=== PATIENT | female | born 1945 | race Caucasian/White ===

== ENCOUNTER 2018-02-19 12:19 | Inpatient (IN) ==
[2018-02-19] MEDS ORDERED: 0.9 % Sodium Chloride 1,000 ML IVC ONE (12:38)
--- NOTE | 2018-02-19 12:41 | Emergency Department Note ---
Disposition Clinical Impression: Paroxysmal atrial fibrillation with rapid ventricular response Disposition: Admitted As Inpatient Condition: Fair Instructions: Atrial Fibrillation (ED) Forms: ED Satisfaction Letter Weakness HPI - General Chief complaint: ED Shortness of Breath/Dyspnea Stated complaint: SOB, dizzy, nausea Time Seen by Provider: 02/19/18 12:32 Source: patient, family Limitations: altered mental status Nursing Notes Reviewed: Yes Vital Signs Reviewed: Yes - History of Present Illness HPI Narrative: 72-year-old female percents for evaluation of generalized weakness. Patient has a history of dementia and therefore her history is not totally reliable and history is obtained mostly from the daughter. Patient states she has been feeling this way for the last 2-3 days. Patient states she has a known history of COPD and frequent when she starts to feel this way she is developing pneumonia. She states that the severity of her COPD and requires oxygen on an as-needed basis. She has nebulizers prescribed does not use them. Patient states no fever or chills. She said no nausea vomiting. She states she has been having some blood from her stools. She denies any abdominal pain. She states no history of hemorrhoids. She has known history of atrial fibrillation. This is not chronic but has been treated in the past with Cardizem. She denies any history of congestive heart failure. She denies any current chest pain. Pain Scale: 0 - Related Data Home Medications Medication Instructions Recorded Confirmed LevETIRAcetam [Keppra] 500 mg PO DAILY 02/01/15 02/19/18 levETIRAcetam [Keppra] 750 mg PO HS 02/01/15 02/19/18 Donepezil [Aricept] 10 mg PO HS 01/31/16 02/19/18 Loratadine [Claritin] 10 mg PO DAILY 01/31/16 02/19/18 Mirtazapine [Remeron] 30 mg PO HS 01/31/16 02/19/18 Sertraline [Zoloft] 100 mg PO DAILY 01/31/16 02/19/18 carBAMazepine [Tegretol] 100 mg PO BID 01/31/16 02/19/18 Gabapentin [Neurontin] 400 mg PO BID 07/23/17 02/19/18 carBAMazepine [Tegretol] 200 mg PO HS 07/23/17 02/19/18 Allergies Allergy/AdvReac Type Severity Reaction Status Date / Time azithromycin [From Zithromax] Allergy Rash Verified 07/23/17 15:47 cefuroxime [From Ceftin] Allergy Rash Verified 07/23/17 15:47 cephalexin [From Keflex] Allergy See Verified 07/23/17 15:47 Comments Erythromycin Base Allergy Rash Verified 07/23/17 15:47 levofloxacin [From Levaquin] Allergy Rash Verified 07/23/17 15:47 Penicillins Allergy Rash Verified 07/23/17 15:47 promethazine [From Phenergan] Allergy Hallucinati Verified 07/23/17 15:47 ng propoxyphene [From Darvon] Allergy See Verified 02/19/18 12:29 Comments sulfamethoxazole Allergy Rash Verified 07/23/17 15:47 [From Bactrim] trimethoprim [From Bactrim] Allergy Rash Verified 07/23/17 15:47 aspirin AdvReac Abdominal Verified 07/23/17 15:47 Pain Review of Systems: Constitutional: [Negative for fever and chills.] HENT: [Negative for congestion.] Eyes: [Negative for discharge.] Respiratory: See history of present illness Cardiovascular: [Negative for chest pain.] Gastrointestinal: [Negative for nausea, vomiting, abdominal pain and diarrhea.] Endocrine: [Negative for excessive thirst,urination] Genitourinary: [Negative for dysuria and frequency.] Musculoskeletal: [Negative for myalgias and arthralgias.] Skin: [Negative for rash.] Neurological: [Negative for dizziness, localized weakness and headaches.] Psychiatric/Behavioral: [Negative for nervous/anxious.] All other systems reviewed and are negative. Past Medical History - Past Medical History Attestation: Yes The following information was validated with the patient. Source: patient Medical history: Reports: atrial fibrillation, CHF, COPD, dementia, hypertension , seizures Surgical history: Reports: cholecystectomy, hysterectomy Psychiatric history: Reports: anxiety, depression FREIGHT BROKER history: Reports: no FREIGHT BROKER history - Social History Smoking Status: Former smoker Smokeless Tobacco Status: No Alcohol use: Reports: none Drug use: Reports: none Physical Exam Constitutional: Patient is [alert], elderly and very thin and cooperative. . The patient appears [asymptomatic], [nontoxic, and does not appear ill]. HENT: Head: Normocephalic and atraumatic. Right Ear: External ear normal. Left Ear: External ear normal. Nose: Nose normal. Mouth/Throat: Oropharynx is clear and mucous membranes show [good hydration.] Eyes: Conjunctivae and EOM are normal. Pupils are equal, round, and reactive to light. Right eye exhibits [no] discharge. Left eye exhibits [no] discharge. Neck: Trachea is midline, normal range of motion and [phonation normal]. Neck supple. Cardiovascular: [Regular rhythm], S1 normal, S2 normal, normal heart sounds and intact distal pulses. Exam reveals no gallop and no friction rub. No murmur heard. [Capillary refill is brisk.] [Peripheral pulses are 2+] Pulmonary/Chest: Effort [normal] No stridor. [No] tachypnea. [No] respiratory distress. There are [no] decreased breath sounds. [There no wheezes, no rhonchi , or rales.] Abdominal: Soft. [Bowel sounds are normal]. There exhibits [no] distension and [no] mass. There is no hepatosplenomegaly. There is minimal right lower quadrant tenderness, [no] CVA tenderness. There is [no rigidity, no rebound, no guarding]. Musculoskeletal: Normal range of motion of uninvolved extremities. There exhibits [no edema]. [ ] Neurological: Patient is alert. Patient displays no atrophy and no tremor. No cranial nerve deficit and exhibits normal muscle tone. Coordination normal grossly. Skin: Skin is warm and dry. No erythema. No rash noted. Psychiatric: Patient has a [normal mood and affect.] Course Course Narrative: Patient was started on Cardizem drip with decrease in heart rate 200+ or -5. Patient was discussed with Dr. Anu Willis's nurse practitioner who will accept the patient for admission Vital Signs Temperature 98.4 F 02/19/18 12:34 Pulse Rate 118 02/19/18 12:34 Respiratory Rate 18 02/19/18 12:34 Blood Pressure 126/84 02/19/18 12:34 O2 Sat by Pulse Oximetry 93 02/19/18 12:34 Temperature 98.4 F 02/19/18 12:34 Pulse Rate 84 02/19/18 13:30 Respiratory Rate 18 02/19/18 12:34 Blood Pressure 103/72 02/19/18 13:30 O2 Sat by Pulse Oximetry 95 02/19/18 13:30 Oxygen Delivery Oxygen Delivery Room Air Weakness - MDM Narrative Medical decision making narrative: Differential diagnosis would include Sepsis ( THE RESULT OF PNEUMONIA, INFLUENZA, MENINGITIS,SINUSITIS, ENDOCARDITIS,PYELONEPHRITIS, COLITIS, DIVERTICULITIS,OR WOUND INFECTION), ALCOHOL INTOXICATION, ELEVATED AMNONIA, DRUG TOXICITIES, ELECTROLYTE ABNORMALITIES, HYPO OR HYPERGLYCEMIA, OR UREMIA, PULMONARY EMBOLISM, ACUTE CORONARY SYNDROME, THORACIC AORTIC DISSECTION, PNEUMOTHORAX, PNEUMONIA, PLEURAL EFFUSION, , ESOPHAGEAL RUPTURE, PERICARDIAL TAMPONADE, PULMONARY EDEMA. ANEMIA, GASTROINTESTINAL BLEEDING, RENAL FAILURE, LIVER FAILURE, - Lab Data Lab results reviewed: Yes I reviewed the patient's lab results. Result diagrams: 02/19/18 12:45 02/19/18 12:45 Lab Results 02/19/18 02/19/18 02/19/18 Range/Units 12:45 12:45 12:45 WBC 7.2 (4.3-11.1) K/mcL RBC 4.16 (3.82-4.97) M/mcL Hgb 13.3 (11.5-15.4) g/dL Hct 39.9 (35.3-44.9) % MCV 95.9 (83.0-100.0) fL MCH 32.0 (28.0-33.3) pg MCHC 33.3 (31.6-35.5) g/dL RDW 12.6 (11.5-14.5) % Plt Count 162 (140-400) K/mcL MPV 9.9 (9.4-12.4) fL Immature Gran % 0.1 (0-4) % Seg Neutrophils % 68.9 % Lymphocytes % 21.4 % Monocytes % 7.1 % Eosinophils % 2.2 % Basophils % 0.3 % Neutrophils # 5.0 (1.6-8.9) K/mcL Lymphocytes # 1.5 (0.6-4.6) K/mcL Monocytes # 0.5 (0.0-1.3) K/mcL Eosinophils # 0.2 (0.0-0.6) K/mcL Basophils # 0.0 (0.0-0.2) K/mcL PT (9.4-12.1) Seconds INR APTT (26.0-36.0) Seconds Sodium 141 (136-145) mEq/L Potassium 4.0 (3.5-5.1) mEq/L Chloride 103 (98-107) mEq/L Carbon Dioxide 29 (23-29) mEq/L BUN 22 (8-23) mg/dL Creatinine 0.70 (0.60-1.20) mg/dL Est GFR ( Amer) > 60 (> 60) Est GFR (Non-Af Amer) > 60 (> 60) BUN/Creatinine Ratio 31 H (6-26) Glucose 144 H (70-105) mg/dL Calculated Osmolality 298 (280-300) Lactic Acid 0.8 (0.5-2.2) mmol/L Calcium 9.5 (8.6-10.3) mg/dL Total Bilirubin 0.4 (0.3-1.0) mg/dL Direct Bilirubin 0.1 (0.0-0.2) mg/dL Indirect Bilirubin 0.3 (0.0-1.2) mg/dL AST 17 (13-39) Units/L ALT 9 (7-52) Units/L Alkaline Phosphatase 135 H (34-104) Units/L Troponin I < 0.03 (< 0.04) ng/mL B-Natriuretic Peptide (Less than 100) pg/mL Serum Total Protein 7.1 (6.4-8.9) g/dL Albumin 3.9 (3.5-5.7) g/dL Globulin 3.2 (2.4-3.5) g/dL Albumin/Globulin Ratio 1.2 (1.1-2.2) TSH (0.340-5.600) mcIU/mL 02/19/18 02/19/18 02/19/18 Range/Units 12:45 12:45 12:45 WBC (4.3-11.1) K/mcL RBC (3.82-4.97) M/mcL Hgb (11.5-15.4) g/dL Hct (35.3-44.9) % MCV (83.0-100.0) fL MCH (28.0-33.3) pg MCHC (31.6-35.5) g/dL RDW (11.5-14.5) % Plt Count (140-400) K/mcL MPV (9.4-12.4) fL Immature Gran % (0-4) % Seg Neutrophils % % Lymphocytes % % Monocytes % % Eosinophils % % Basophils % % Neutrophils # (1.6-8.9) K/mcL Lymphocytes # (0.6-4.6) K/mcL Monocytes # (0.0-1.3) K/mcL Eosinophils # (0.0-0.6) K/mcL Basophils # (0.0-0.2) K/mcL PT 13.1 H (9.4-12.1) Seconds INR 1.2 APTT 32.2 (26.0-36.0) Seconds Sodium (136-145) mEq/L Potassium (3.5-5.1) mEq/L Chloride (98-107) mEq/L Carbon Dioxide (23-29) mEq/L BUN (8-23) mg/dL Creatinine (0.60-1.20) mg/dL Est GFR ( Amer) (> 60) Est GFR (Non-Af Amer) (> 60) BUN/Creatinine Ratio (6-26) Glucose (70-105) mg/dL Calculated Osmolality (280-300) Lactic Acid (0.5-2.2) mmol/L Calcium (8.6-10.3) mg/dL Total Bilirubin (0.3-1.0) mg/dL Direct Bilirubin (0.0-0.2) mg/dL Indirect Bilirubin (0.0-1.2) mg/dL AST (13-39) Units/L ALT (7-52) Units/L Alkaline Phosphatase (34-104) Units/L Troponin I (< 0.04) ng/mL B-Natriuretic Peptide 248 H (Less than 100) pg/mL Serum Total Protein (6.4-8.9) g/dL Albumin (3.5-5.7) g/dL Globulin (2.4-3.5) g/dL Albumin/Globulin Ratio (1.1-2.2) TSH 4.505 (0.340-5.600) mcIU/mL - Radiology Data Radiology results reviewed: Yes I reviewed the patient's radiology results. XR/XR chest 2V IMPRESSION: Stable appearance of the chest without acute cardiopulmonary process identified. - EKG Data EKG attestation: Yes I reviewed and interpreted this EKG. Rate: tachycardia Rhythm: A.Fib (With rapid ventricular response) [place]/QRS: normal Interpretation: nonspecific ST-T wave changes
[2018-02-19 13:00] LABS: Basophils % 0.3 %; Eosinophils # 0.2 K/mcL (0.0-0.6); Eosinophils % 2.2 %; Hematocrit 39.9 % (35.3-44.9); Hemoglobin 13.3 g/dL (11.5-15.4); Immature Granulocytes % 0.1 % (0-4); Lymphocytes # 1.5 K/mcL (0.6-4.6); Lymphocytes % 21.4 %; Mean Corpuscular HGB Conc 33.3 g/dL (31.6-35.5); Mean Corpuscular Volume 95.9 fL (83.0-100.0); Mean Platelet Volume 9.9 fL (9.4-12.4); Monocytes # 0.5 K/mcL (0.0-1.3); Monocytes % 7.1 %; Platelet Count 162 K/mcL (140-400); Red Blood Count 4.16 M/mcL (3.82-4.97); Red Cell Distribution Width 12.6 % (11.5-14.5); Segmented Neutrophils % 68.9 %
[2018-02-19 13:05] LABS: INR 1.2; Prothrombin Time 13.1 Seconds (9.4-12.1)
[2018-02-19 13:07] LABS: Activated Partial Thrombo Time 32.2 Seconds (26.0-36.0)
[2018-02-19 13:15] LABS: Alanine Aminotransferase 9 Units/L (7-52); Albumin 3.9 g/dL (3.5-5.7); Albumin/Globulin Ratio 1.2 (1.1-2.2); Alkaline Phosphatase 135 Units/L (34-104); Aspartate Amino Transferase 17 Units/L (13-39); BUN/Creatinine Ratio 31 (6-26); Bilirubin,Direct 0.1 mg/dL (0.0-0.2); Bilirubin,Indirect 0.3 mg/dL (0.0-1.2); Bilirubin,Total 0.4 mg/dL (0.3-1.0); Blood Urea Nitrogen 22 mg/dL (8-23); Calcium 9.5 mg/dL (8.6-10.3); Carbon Dioxide 29 mEq/L (23-29); Chloride 103 mEq/L (98-107); Globulin 3.2 g/dL (2.4-3.5); Glucose 144 mg/dL (70-105); Osmolality,Calculated 298 (280-300); Sodium 141 mEq/L (136-145); Total Protein 7.1 g/dL (6.4-8.9); Troponin I < 0.03 ng/mL (< 0.04); eGFR For Non-African Americans > 60 (> 60)
[2018-02-19 13:16] LABS: Bilirubin,Urine Negative (Negative); Blood,Urine Trace-lysed (Negative); Clarity,Urine Clear (Clear); Color,Urine Yellow (Yellow); Glucose,Urine (UA) Normal (Normal); Ketones,Urine Negative (Negative); Leukocyte Esterase,Urine Moderate (Negative); Nitrite,Urine Negative (Negative); Protein,Urine Negative (Neg-Trace); Specific Gravity,Urine 1.015 (1.010-1.025); Urobilinogen,Urine Normal (Normal)
[2018-02-19] MEDS ORDERED: Naloxone 0.4 MG/ML INJ IVP PRN (13:50)
[2018-02-19 14:43] LABS: Bacteria,Urine Few per hpf (None-Few); Squamous Epithelial Cell,Urine Few per lpf (None-Few)
[2018-02-19] MEDS: carBAMazepine 200 MG TABLET PO SCH ×2 (17:27→22:44)
[2018-02-19] MEDS ORDERED: Ondansetron ODT 4 MG TAB.RAPDIS SL PRN (20:56)
[2018-02-19] MEDS: Gabapentin 400 MG CAPSULE PO SCH (22:43)
[2018-02-19] MEDS: Mirtazapine 15 MG TABLET PO SCH (22:43)
[2018-02-19] MEDS: levETIRAcetam 250 MG TABLET PO SCH (22:43)
[2018-02-19] MEDS: *HR* Enoxaparin 60 MG/0.6 ML SYRINGE SQ SCH (22:44)
[2018-02-20] MEDS: *HR* Enoxaparin 60 MG/0.6 ML SYRINGE SQ SCH ×2 (05:43→17:12)
[2018-02-20 06:16] LABS: Hematocrit 38.5 % (35.3-44.9); Hemoglobin 12.6 g/dL (11.5-15.4); Mean Corpuscular HGB Conc 32.7 g/dL (31.6-35.5); Mean Corpuscular Hemoglobin 31.8 pg (28.0-33.3); Mean Corpuscular Volume 97.2 fL (83.0-100.0); Platelet Count 137 K/mcL (140-400); Red Blood Count 3.96 M/mcL (3.82-4.97); Red Cell Distribution Width 12.6 % (11.5-14.5)
[2018-02-20 06:30] LABS: BUN/Creatinine Ratio 28 (6-26); Blood Urea Nitrogen 18 mg/dL (8-23); Calcium 8.7 mg/dL (8.6-10.3); Carbon Dioxide 28 mEq/L (23-29); Chloride 105 mEq/L (98-107); Glucose 120 mg/dL (70-105); Osmolality,Calculated 291 (280-300); Sodium 139 mEq/L (136-145); eGFR For Non-African Americans > 60 (> 60)
[2018-02-20] MEDS: carBAMazepine 200 MG TABLET PO SCH ×3 (07:58→21:14)
[2018-02-20] MEDS: Gabapentin 400 MG CAPSULE PO SCH ×2 (07:58→21:13)
[2018-02-20] MEDS: Loratadine 10 MG TABLET PO SCH (07:58)
[2018-02-20] MEDS: levETIRAcetam 250 MG TABLET PO SCH ×2 (07:59→21:14)
--- NOTE | 2018-02-20 09:19 | Internal Med History&Physical ---
Date of Encounter: 02/20/18 Time of Encounter: 09:17 Assessment and Plan (1) Dementia Current visit: Yes Status: Acute continue supportive care. Qualifiers: Dementia type: unspecified type Dementia behavioral disturbance: without behavioral disturbance Qualified Code(s): F03.90 - Unspecified dementia without behavioral disturbance (2) COPD (chronic obstructive pulmonary disease) Current visit: Yes Status: Acute Stable. Continue current medication. Qualifiers: COPD type: unspecified COPD Qualified Code(s): J44.9 - Chronic obstructive pulmonary disease, unspecified (3) Paroxysmal atrial fibrillation with rapid ventricular response Current visit: Yes Status: Acute Continue Cardizem drip. Will try to titrate off. Metoprolol 25 mg started b.i.d. Consult cardiology. On Lovenox for DVT prophylaxis. Will consider switching to xarelto. rate 90-115 (4) Blood in stool Current visit: Yes Status: Acute hgb 12.6. pt reports sm amt of blood with BM. unaware of any hx of hemorrhoids. stool for occult blood. monitor. Internal Medicine - H&P: HPI Admitted From: Emergency Dept Plans for Post Hospital Care: Home History of present illness: Ms. Spencer is a 72 year old female admitted to unit for observation from the emergency room. Patient presented to the emergency room with family with a 2 to 3 day history of generalized weakness. Past medical history includes a fib, COPD which requires oxygen as needed. And dementia. Patient is a poor historian due to dementia. Denies report having a small amount of blood with the last couple bowel movements. Has been on Cardizem drip status arriving to the ER yesterday. Continues to remain in atrial fibrillation with rates 90 - 115. Denies shortness of breath, chest pain, fever, chills, nausea vomiting or diarrhea. Does complaining of fatigue. Past Med Surg Social Fam HX - Past Medical History Medical history: atrial fibrillation, CHF, COPD, dementia, hypertension, seizures Additional medical history: hysto gallblader, tonsilectomy Psychiatric history: anxiety, depression - Past Surgical History Surgical History: cholecystectomy, hysterectomy - Social History Smoking Status: Former smoker Smokeless Tobacco Status: No Alcohol use: none Drug use: none Internal Medicine - H&P: Meds LevETIRAcetam [Keppra] 500 mg PO DAILY 02/01/15 [History] levETIRAcetam [Keppra] 750 mg PO HS 02/01/15 [History] Donepezil [Aricept] 10 mg PO HS 01/31/16 [History] Loratadine [Claritin] 10 mg PO DAILY 01/31/16 [History] Mirtazapine [Remeron] 30 mg PO HS 01/31/16 [History] Sertraline [Zoloft] 100 mg PO DAILY 01/31/16 [History] carBAMazepine [Tegretol] 100 mg PO BID 01/31/16 [History] Gabapentin [Neurontin] 400 mg PO BID 07/23/17 [History] carBAMazepine [Tegretol] 200 mg PO HS 07/23/17 [History] 3 Allergy/AdvReac Type Severity Reaction Status Date / Time azithromycin [From Zithromax] Allergy Rash Verified 07/23/17 15:47 cefuroxime [From Ceftin] Allergy Rash Verified 07/23/17 15:47 cephalexin [From Keflex] Allergy See Verified 07/23/17 15:47 Comments Erythromycin Base Allergy Rash Verified 07/23/17 15:47 levofloxacin [From Levaquin] Allergy Rash Verified 07/23/17 15:47 Penicillins Allergy Rash Verified 07/23/17 15:47 promethazine [From Phenergan] Allergy Hallucinati Verified 07/23/17 15:47 ng propoxyphene [From Darvon] Allergy See Verified 02/19/18 12:29 Comments sulfamethoxazole Allergy Rash Verified 07/23/17 15:47 [From Bactrim] trimethoprim [From Bactrim] Allergy Rash Verified 07/23/17 15:47 aspirin AdvReac Abdominal Verified 07/23/17 15:47 Pain ROS unobtainable: due to endotracheal tube, due to mental status All Systems PM: A 10-system review of systems was performed and is negative for pertinent findings except as documented above in the HPI. Review of systems: Poor historian - Constitutional Vitals: Temp Pulse Resp BP Pulse Ox 97.3 F L 74 18 103/57 93 02/20/18 07:48 02/20/18 07:48 02/20/18 07:48 02/20/18 07:48 02/20/18 07:48 General appearance: Present: cooperative, A&O X 2, pleasant, no acute distress, answers questions appropriately Exam: Thin - Head Head exam: Present: atraumatic, normocephalic - Eye Eye exam: Present: PERRL, conjuntiva pink, sclera anicteric Pupils: Present: PERRL - Neck Neck exam general surgery: Present: supple, trachea midline. Absent: lymphadenopathy - Respiratory Respiratory exam: Present: CTAB. Absent: accessory muscle use, rales, rhonchi, wheezes - Cardiovascular Cardiovascular exam: Present: irregular rhythm, +S1, +S2. Absent: diastolic murmur, gallop, rubs, systolic murmur - GI/Abdominal GI/Abdominal exam: Present: normal bowel sounds, soft, no peritoneal signs. Absent: distended, tenderness - Extremities Exam Extremities exam: Present: warm, radial pulses palpable and symmetrical. Absent : calf tenderness, cyanotic, pedal edema - Neurological Exam Neurological exam: Present: CN II-XII intact, oriented X3, no focal deficits. Absent: pronater drift, facial droop, speech deficit - Skin Skin exam: Present: dry, intact Internal Med - H&P Results - Labs CBC & Chem 7: 02/20/18 05:45 02/20/18 05:45 Labs: Short CBC 02/20/18 Range/Units 05:45 WBC 6.9 (4.3-11.1) K/mcL Hgb 12.6 (11.5-15.4) g/dL Hct 38.5 (35.3-44.9) % Plt Count 137 L (140-400) K/mcL BMP 02/20/18 05:45 Sodium 139 Potassium 4.0 Chloride 105 Carbon Dioxide 28 BUN 18 Creatinine 0.64 Glucose 120 H Calcium 8.7
--- NOTE | 2018-02-20 11:17 | Electrocardiograph Report ---
[address] [address] Test Date: 2018-02-19 Pat Name: Pat Spencer Department: 2000 Room: 117 Gender: F Bricklayer'S Assistant: : 1945 Requested By: Kenny Morton Order Number: [id number] Reading MD: Oralia Suarez Measurements Intervals [place] Rate: 120 P: [place]: 0 QRS: 86 QRSD: 80 T: 53 QT: 305 QTc: 376 Interpretive Statements ATRIAL FLUTTER/TACHYCARDIA WITH RAPID VENTRICULAR RESPONSE POSSIBLE RIGHT VENTRICULAR CONDUCTION DELAY MINIMAL ST DEPRESSION ABNORMAL RHYTHM ECG Electronically Signed On 02-20-2018 11:15:46 EDT by Oralia Suarez
[2018-02-20] MEDS: Mirtazapine 15 MG TABLET PO SCH (21:13)
[2018-02-21] MEDS: *HR* Enoxaparin 60 MG/0.6 ML SYRINGE SQ SCH ×2 (06:24→18:59)
--- NOTE | 2018-02-21 10:25 | Internal Med Progress Note ---
Date of Encounter: 02/21/18 Time of Encounter: 09:30 - Assessment and plan (1) Paroxysmal atrial fibrillation with rapid ventricular response Current Visit: Yes Status: Acute Assessment and plan: She seems to be tolerating the Cardizem drip at low dose with her propranolol so we will discontinue the Cardizem drip and follow rate. Because of her fall risk and otherwise, she has been taken off anticoagulation and this is contraindicated. (2) COPD (chronic obstructive pulmonary disease) Current Visit: Yes Status: Acute Assessment and plan: Clinically stable. Qualifiers: COPD type: unspecified COPD Qualified Code(s): J44.9 - Chronic obstructive pulmonary disease, unspecified (3) Dementia Current Visit: Yes Status: Acute Assessment and plan: Plan is to discharge to [facility] in a couple of days. Qualifiers: Dementia type: unspecified type Dementia behavioral disturbance: without behavioral disturbance Qualified Code(s): F03.90 - Unspecified dementia without behavioral disturbance - Subjective Interval history: Patient is not feeling well because she was feeling weak. She denies specific cardiopulmonary complaints or other problems. She has some back pain which she attributes to her scoliosis. Patient has no complaint of chest discomfort, dyspnea, orthopnea, palpitations, nausea or vomiting, constipation or diarrhea, other changes in bowel habits, difficulty with urination, rash or itching, or other new complaints, except as mentioned above. Review of systems is otherwise negative. I discussed management of her care with nursing staff. - Constitutional Vitals: Temp Pulse Resp BP Pulse Ox 97.7 F 70 14 113/71 97 02/21/18 04:00 02/21/18 04:00 02/21/18 04:00 02/21/18 04:00 02/21/18 04:00 Exam: Examination: (Except as mentioned above): General: In no apparent distress. Alert and oriented 1. He does not remember discussions from yesterday. Nondiaphoretic. Head: Atraumatic and normocephalic. Respiratory: No use of accessory muscles. Lungs are clear throughout. Normal airflow. Cardiovascular: Irregularly irregular with grade 1/6 systolic murmur. Rate controlled. Abdomen: Bowel sounds are normal. No hepatosplenomegaly mass or tenderness appreciated. Obese and therefore difficult to palpate deeply. Extremities: No cyanosis clubbing or edema. Skin: Warm and non-diaphoretic with no new lesions noted. Internal Medicine: Result - Labs CBC & Chem 7: 02/20/18 05:45 02/20/18 05:45 - ABG Interpretation ABG results: PT/INR, D-dimer PT 13.1 Seconds (9.4-12.1) H 02/19/18 12:45 Consult Discharge Plan - Plan Referrals: Sofia Germain, PhD [Primary Care Provider] -
[2018-02-21] MEDS: Loratadine 10 MG TABLET PO SCH (11:26)
[2018-02-21] MEDS: levETIRAcetam 250 MG TABLET PO SCH ×2 (11:27→20:57)
[2018-02-21] MEDS: Gabapentin 400 MG CAPSULE PO SCH ×2 (11:27→20:58)
[2018-02-21] MEDS: carBAMazepine 200 MG TABLET PO SCH ×4 (11:29→19:04)
[2018-02-21] MEDS: Mirtazapine 15 MG TABLET PO SCH (20:58)
[2018-02-22] MEDS: *HR* Enoxaparin 60 MG/0.6 ML SYRINGE SQ SCH ×2 (05:32→18:01)
[2018-02-22] MEDS: carBAMazepine 200 MG TABLET PO SCH ×3 (11:09→20:54)
[2018-02-22] MEDS: levETIRAcetam 250 MG TABLET PO SCH ×2 (11:09→20:54)
[2018-02-22] MEDS: Gabapentin 400 MG CAPSULE PO SCH ×2 (11:09→20:54)
[2018-02-22] MEDS: Loratadine 10 MG TABLET PO SCH (11:09)
--- NOTE | 2018-02-22 12:31 | Internal Med Progress Note ---
Date of Encounter: 02/22/18 Time of Encounter: 12:29 - Assessment and plan (1) Dementia Current Visit: Yes Status: Acute Assessment and plan: Progressive disease. Expect decline. Continue supportive care. Qualifiers: Dementia type: unspecified type Dementia behavioral disturbance: without behavioral disturbance Qualified Code(s): F03.90 - Unspecified dementia without behavioral disturbance (2) COPD (chronic obstructive pulmonary disease) Current Visit: Yes Status: Acute Assessment and plan: Stable. Continue inhaled meds. Qualifiers: COPD type: unspecified COPD Qualified Code(s): J44.9 - Chronic obstructive pulmonary disease, unspecified (3) Paroxysmal atrial fibrillation with rapid ventricular response Current Visit: Yes Status: Acute Assessment and plan: Rate continues to be 70 to 100 on quality assurance monitor chassis. Continue current metoprolol. Continue Lovenox. (4) UTI (urinary tract infection) Current Visit: Yes Status: Acute Assessment and plan: will start macrobid. reviewed culture and sensitivity. Qualifiers: Urinary tract infection type: site unspecified Hematuria presence: without hematuria Qualified Code(s): N39.0 - Urinary tract infection, site not specified - Time Spent With Patient less than 15 minutes - Subjective Interval history: resting in bed. denies chest pain, SOB, fever, chills, NVD. maintaining appetite and hydration. not a great historian due to dementia. - Constitutional Vitals: Temp Pulse Resp BP Pulse Ox 97.7 F 83 17 144/84 92 02/22/18 11:55 02/22/18 11:55 02/22/18 11:55 02/22/18 11:55 02/22/18 11:55 General appearance: Present: cooperative, A&O X 2, pleasant, no acute distress, answers questions appropriately Exam: thin - Head Head exam: Present: atraumatic, normocephalic - Eye Eye exam: Present: PERRL, conjuntiva pink, sclera anicteric Pupils: Present: PERRL - Neck Neck exam general surgery: Present: supple, trachea midline. Absent: lymphadenopathy - Respiratory Respiratory exam: Present: CTAB. Absent: accessory muscle use, rales, rhonchi, wheezes - Cardiovascular Cardiovascular exam: Present: irregular rhythm, +S1, +S2. Absent: diastolic murmur, gallop, rubs, systolic murmur - GI/Abdominal GI/Abdominal exam: Present: normal bowel sounds, soft, no peritoneal signs. Absent: distended, tenderness - Extremities Exam Extremities exam: Present: warm, radial pulses palpable and symmetrical. Absent : calf tenderness, cyanotic, pedal edema - Neurological Exam Neurological exam: Present: CN II-XII intact, oriented X3, no focal deficits. Absent: pronater drift, facial droop, speech deficit - Skin Skin exam: Present: dry, intact Internal Medicine: Result - Labs CBC & Chem 7: 02/20/18 05:45 02/20/18 05:45 - ABG Interpretation ABG results: PT/INR, D-dimer PT 13.1 Seconds (9.4-12.1) H 02/19/18 12:45 Consult Discharge Plan - Plan Referrals: Sofia Germain, PhD [Primary Care Provider] -
[2018-02-22] MEDS ORDERED: Nitrofurantoin (BID) 100 MG CAPSULE PO SCH (17:00)
[2018-02-22] MEDS: Mirtazapine 15 MG TABLET PO SCH (20:55)
[2018-02-23 13:43] VITALS: BP 147/75
--- NOTE | 2018-02-23 14:02 | Discharge Summary ---
Addendum entered and electronically signed by Jorge A Brennan MD 02/23/18 15:04: I have personally performed a face to face evaluation on this patient. I have r eviewed and agree with the care plan. History and Exam by me shows: Patient without complaints except back pain which is actually better than before. She denies breathing problems or chest discomfort. She cannot remember she moved her bowels. She is oriented 1, only. Discussed care with other providers and/or nursing. Patient has no complaint of chest discomfort, dyspnea, orthopnea, palpitations, nausea or vomiting, constipation or diarrhea, other changes in bowel habits, difficulty with urination, rash or itching, or other new complaints, except as mentioned above. Review of systems is otherwise negative. Examination: (Except as mentioned above): General: In no apparent distress. Alert and oriented 1. Nondiaphoretic. Head: Atraumatic and normocephalic. Respiratory: No use of accessory muscles. Lungs are clear throughout. Normal airflow. Cardiovascular: Regular rate and rhythm without murmur appreciated. Abdomen: Bowel sounds are normal. No hepatosplenomegaly mass or tenderness appreciated. Obese and therefore difficult to palpate deeply. Extremities: No cyanosis clubbing or edema. Skin: Warm and non-diaphoretic with no new lesions noted. She will be treated for 7 days with by mouth antibiotics. She will need a recheck of her urine culture about a week later. (This might improve her mental status but I doubt it.) Original Note: Date of Encounter: 02/23/18 Time of Encounter: 14:00 - Discharge Diagnosis (1) Dementia Priority: Secondary Status: Acute Comments: Progressive disease. Expect decline. Continue supportive care. Transferring to [facility]. Qualifiers: Dementia type: unspecified type Dementia behavioral disturbance: without behavioral disturbance Qualified Code(s): F03.90 - Unspecified dementia without behavioral disturbance (2) COPD (chronic obstructive pulmonary disease) Priority: Secondary Status: Acute Comments: Controlled with inhaled meds. Qualifiers: COPD type: unspecified COPD Qualified Code(s): J44.9 - Chronic obstructive pulmonary disease, unspecified (3) Paroxysmal atrial fibrillation with rapid ventricular response Priority: Primary Status: Acute Comments: Rate controlled 70 to 90 bpm. Continue metoprolol. Not a candidate for anticoagulation due to recent falls and future fall risk (4) UTI (urinary tract infection) Priority: Secondary Status: Acute Comments: Continue Macrobid. Qualifiers: Urinary tract infection type: site unspecified Hematuria presence: without hematuria Qualified Code(s): N39.0 - Urinary tract infection, site not specified Hospital course: Ms. Spencer is a 72 year old female discharging to [facility] after hospital admission due to weakness and atrial fibrillation. Patient is responding well to metoprolol. rate has been controlled between 70 and 90 bpm. On Macrobid for urinary tract infection. History of dementia and COPD. Patient has poor short- term memory. Poor historian due to this. Daughter is able to provide history. Discharge discussed with: patient, family, nurse, social work - Time Spent with Patient Total time spent providing and/or coordinating discharge services: Less than 30 minutes - Discharge Medications Home Medications: LevETIRAcetam [Keppra] 500 mg PO DAILY 02/01/15 [History] levETIRAcetam [Keppra] 750 mg PO HS 02/01/15 [History] Donepezil [Aricept] 10 mg PO HS 01/31/16 [History] Loratadine [Claritin] 10 mg PO DAILY 01/31/16 [History] Mirtazapine [Remeron] 30 mg PO HS 01/31/16 [History] Sertraline [Zoloft] 100 mg PO DAILY 01/31/16 [History] carBAMazepine [Tegretol] 100 mg PO BID 01/31/16 [History] Gabapentin [Neurontin] 400 mg PO BID 07/23/17 [History] carBAMazepine [Tegretol] 200 mg PO HS 07/23/17 [History] Metoprolol [Lopressor] 25 mg PO BID 7 Days #14 tablet 02/23/18 [Rx] Nitrofurantoin (BID) [Macrobid] 100 mg PO BIDWM 5 Days #10 capsule 02/23/18 [Rx] Allergies/Adverse Reactions: Allergy/AdvReac Type Severity Reaction Status Date / Time azithromycin [From Zithromax] Allergy Rash Verified 07/23/17 15:47 cefuroxime [From Ceftin] Allergy Rash Verified 07/23/17 15:47 cephalexin [From Keflex] Allergy See Verified 07/23/17 15:47 Comments Erythromycin Base Allergy Rash Verified 07/23/17 15:47 levofloxacin [From Levaquin] Allergy Rash Verified 07/23/17 15:47 Penicillins Allergy Rash Verified 07/23/17 15:47 promethazine [From Phenergan] Allergy Hallucinati Verified 07/23/17 15:47 ng propoxyphene [From Darvon] Allergy See Verified 02/19/18 12:29 Comments sulfamethoxazole Allergy Rash Verified 07/23/17 15:47 [From Bactrim] trimethoprim [From Bactrim] Allergy Rash Verified 07/23/17 15:47 aspirin AdvReac Abdominal Verified 07/23/17 15:47 Pain Date of admission: 02/20/18 14:59 Primary care physician: Sofia Germain Consults: 02/19/18 15:57 Consult to Nutrition [CONS] Routine Comment: Consulting Provider: NUTRITION Reason for Dietary Consult: Other Consult to Farm Appraiser [CONS] Routine Reason for SW Consult: d/c planning has home health 02/20/18 09:16 Consult to Cardiology [CONS] Routine Comment: Consulting Provider: Cardiology Ella Reason for Consult: atrial fib Call Completed: Yes Discharging clinician: Jorge A Brennan Anticipated date of discharge: 02/23/18 - Constitutional Vitals: Temp Pulse Resp BP Pulse Ox 98.9 F 93 16 147/75 94 02/23/18 13:41 02/23/18 13:41 02/23/18 13:41 02/23/18 13:41 02/23/18 13:41 General appearance: Present: cooperative, A&O X 2, pleasant, no acute distress, answers questions appropriately Exam: thin - Head Head exam: Present: atraumatic, normocephalic - Eye Eye exam: Present: PERRL, conjuntiva pink, sclera anicteric Pupils: Present: PERRL - Neck Neck exam general surgery: Present: supple, trachea midline. Absent: l ymphadenopathy - Respiratory Respiratory exam: Present: CTAB. Absent: accessory muscle use, rales, rhonchi, wheezes - Cardiovascular Cardiovascular exam: Present: irregular rhythm, +S1, +S2. Absent: diastolic murmur, gallop, rubs, systolic murmur - GI/Abdominal GI/Abdominal exam: Present: normal bowel sounds, soft, no peritoneal signs. Absent: distended, tenderness - Extremities Exam Extremities exam: Present: warm, radial pulses palpable and symmetrical. Absent: calf tenderness, cyanotic, pedal edema - Neurological Exam Neurological exam: Present: CN II-XII intact, oriented X3, no focal deficits. Absent: pronater drift, facial droop, speech deficit - Skin Skin exam: Present: dry, intact - Patient Status Disposition: Transfer SNF Condition: Fair Functional capacity at discharge: uses cane/walker Overall status at discharge: patient is progressing back to baseline - Discharge Instructions Follow Up With: Sofia Germain, PhD [Primary Care Provider] - - Diet and Activity Activity: increase activity as tolerated Diet: advance to your usual diet
--- NOTE | 2018-02-23 14:15 | Physician Discharge Referral ---
Addendum entered and electronically signed by Jorge A Brennan MD 02/23/18 15:04: Original Note: [facility] Referral Info Provider in Charge after Transfer: PCP Institutional Level of Care: Skilled - Diagnosis (1) Dementia Priority: Secondary Status: Acute (2) COPD (chronic obstructive pulmonary disease) Priority: Secondary Status: Acute (3) Paroxysmal atrial fibrillation with rapid ventricular response Priority: Primary Status: Acute (4) UTI (urinary tract infection) Priority: Secondary Status: Acute Prognosis: Fair Aware of Diagnosis: Family - Transfer Medications Prescriptions: Metoprolol [Lopressor] 25 mg PO BID 7 Days #14 tablet Nitrofurantoin (BID) [Macrobid] 100 mg PO BIDWM 5 Days #10 capsule Home Medications: LevETIRAcetam [Keppra] 500 mg PO DAILY 02/01/15 [History] levETIRAcetam [Keppra] 750 mg PO HS 02/01/15 [History] Donepezil [Aricept] 10 mg PO HS 01/31/16 [History] Loratadine [Claritin] 10 mg PO DAILY 01/31/16 [History] Mirtazapine [Remeron] 30 mg PO HS 01/31/16 [History] Sertraline [Zoloft] 100 mg PO DAILY 01/31/16 [History] carBAMazepine [Tegretol] 100 mg PO BID 01/31/16 [History] Gabapentin [Neurontin] 400 mg PO BID 07/23/17 [History] carBAMazepine [Tegretol] 200 mg PO HS 07/23/17 [History] Metoprolol [Lopressor] 25 mg PO BID 7 Days #14 tablet 02/23/18 [Rx] Nitrofurantoin (BID) [Macrobid] 100 mg PO BIDWM 5 Days #10 capsule 02/23/18 [Rx] Allergies/Adverse Reactions: Allergy/AdvReac Type Severity Reaction Status Date / Time azithromycin [From Zithromax] Allergy Rash Verified 07/23/17 15:47 cefuroxime [From Ceftin] Allergy Rash Verified 07/23/17 15:47 cephalexin [From Keflex] Allergy See Verified 07/23/17 15:47 Comments Erythromycin Base Allergy Rash Verified 07/23/17 15:47 levofloxacin [From Levaquin] Allergy Rash Verified 07/23/17 15:47 Penicillins Allergy Rash Verified 07/23/17 15:47 promethazine [From Phenergan] Allergy Hallucinati Verified 07/23/17 15:47 ng propoxyphene [From Darvon] Allergy See Verified 02/19/18 12:29 Comments sulfamethoxazole Allergy Rash Verified 07/23/17 15:47 [From Bactrim] trimethoprim [From Bactrim] Allergy Rash Verified 07/23/17 15:47 aspirin AdvReac Abdominal Verified 07/23/17 15:47 Pain - Respiratory Orders Smoking Cessation: Smoking cessation has been advised. For more information, call the [place] Tobacco Quit Line at 8-572-DHUH-NOW. - Advance Directives Code Status: Full Code - Mobility Orders Ambulate - Diet Orders Cardiac CERTIFICATION: I certify that the transfer of the above named patient to an Extended Care Facility is necessary for the continuing treatment of the diagnosis listed. The above information is true and accurate reflection of patient's current condition. Confidential - Redisclosure prohibited without a patient's written consent.
[2018-02-23] MEDS: carBAMazepine 200 MG TABLET PO SCH (15:19)
[2018-02-23] MEDS ORDERED: *HR* Enoxaparin 60 MG/0.6 ML SYRINGE SQ ONE (17:29)
[2018-02-23] MEDS ORDERED: levETIRAcetam 250 MG TABLET PO ONE (17:29)
[2018-02-23] MEDS ORDERED: Nitrofurantoin (BID) 100 MG CAPSULE PO ONE (17:29)
[2018-02-23] MEDS ORDERED: carBAMazepine 200 MG TABLET PO ONE (17:29)
[2018-02-23] MEDS ORDERED: Gabapentin 400 MG CAPSULE PO ONE (17:29)
[2018-02-23] MEDS ORDERED: Loratadine 10 MG TABLET PO ONE (17:29)
== END 2018-02-23 17:30 | DRG 309 ==
LOC: EMEROOGRE 12:19 → INPGRE 12:19
PROVIDERS: ADMIT Nurse Practitioner Family; ATTEND Nurse Practitioner Family

== ENCOUNTER 2018-06-13 12:08 | Observation (INO) ==
[2018-06-13] MEDS ORDERED: *HR* FentaNYL (PF) 100 MCG/2 ML VIAL IVP ONE (12:41)
[2018-06-13] MEDS ORDERED: Ondansetron 4 MG/2 ML VIAL IVP ONE (12:41)
[2018-06-13] MEDS ORDERED: 0.9 % Sodium Chloride 1,000 ML IVC ONE (12:41)
[2018-06-13] MEDS ORDERED: Isovue-370 500 ML BOTTLE IVP ONE ×2 (12:41→17:54)
--- NOTE | 2018-06-13 12:45 | Emergency Department Note ---
Disposition Clinical Impression: Atrial fibrillation with rapid ventricular response CHF (congestive heart failure) Qualifiers: Heart failure type: unspecified Heart failure chronicity: acute Qualified Code(s): I50.9 - Heart failure, unspecified Disposition: Admitted As Inpatient Condition: Fair Instructions: Atrial Fibrillation (ED) Referrals: Rosanne Edwards MD [Primary Care Provider] - Forms: ED Satisfaction Letter, Work/School Release Abdominal Pain HPI - General Chief Complaint: ED General Medical Time Seen by Provider: 06/13/18 12:19 Source: patient Mode of arrival: EMS Limitations: no limitations Nursing Notes Reviewed: Yes Vital Signs Reviewed: Yes - History of Present Illness HPI Narrative: 73-year-old female percents for evaluation of diarrhea and left lower quadrant abdominal pain. Patient states he symptoms started this morning. She also has associated nausea. Patient's history is somewhat confusing since the custodial sent her related to shortness of breath. Patient has known history of dementia. Further history was obtained from her daughter which she states that she was recently hospitalized at [facility] for pneumonia and developed C. difficile colitis. She currently is on oral vancomycin as treatment for that colitis. She has had prior cholecystectomy, hysterectomy, and appendectomy. She has known history of atrial fibrillation which is chronic. Her rate is usually controlled with metoprolol at the custodial Patient relates a prior history of colonoscopy with colonic polyps with no history of diverticulosis. Patient's CT scan of the chest abdomen and pelvis from [facility] showed right middle lobe and lingula with bronchiectasis. There is acute-appearing infiltrates the inferior aspect of the right upper lobe right lower lobe and posterior left upper lobe. There is also small bilateral pleural effusions. The abdominal portion of the CT scan did not reveal any other acute abno rmalities Pain Scale: 4 - Related Data Home Medications Medication Instructions Recorded Confirmed levETIRAcetam [Keppra] 750 mg PO BID 02/01/15 06/13/18 Donepezil [Aricept] 10 mg PO HS 01/31/16 04/06/18 Loratadine [Claritin] 10 mg PO DAILY 01/31/16 06/13/18 Mirtazapine [Remeron] 15 mg PO HS 01/31/16 06/13/18 Gabapentin [Neurontin] 400 mg PO BID 07/23/17 06/13/18 carBAMazepine [Tegretol] 200 mg PO BID 07/23/17 06/13/18 Acetaminophen [Tylenol] 650 mg PO TID 04/06/18 06/13/18 Metoprolol [Lopressor] 25 mg PO BID 04/06/18 06/13/18 Sertraline [Zoloft] 75 mg PO DAILY 04/06/18 06/13/18 Apixaban [Eliquis] 5 mg PO BID 06/13/18 06/13/18 Cyanocobalamin (Vitamin B-12) 500 mcg SL DAILY 06/13/18 06/13/18 [Vitamin B-12] HYDROcodone/Acet 5/325 mg [[place] 1 tab PO Q6H PRN 06/13/18 06/13/18 5-325 mg] Ipratropium/Albuterol Neb [Duoneb] 3 ml IH Q4HR 06/13/18 06/13/18 Magnesium Hydroxide [Milk of 30 ml PO DAILY 06/13/18 06/13/18 Magnesia] Melatonin [Melatin] 3 mg PO HS 06/13/18 06/13/18 Vancomycin HCl 250 mg PO Q6H 06/13/18 06/13/18 Allergies Allergy/AdvReac Type Severity Reaction Status Date / Time azithromycin [From Zithromax] Allergy Rash Verified 07/23/17 15:47 cefuroxime [From Ceftin] Allergy Rash Verified 07/23/17 15:47 cephalexin [From Keflex] Allergy See Verified 07/23/17 15:47 Comments Erythromycin Base Allergy Rash Verified 07/23/17 15:47 levofloxacin [From Levaquin] Allergy Rash Verified 07/23/17 15:47 Penicillins Allergy Rash Verified 07/23/17 15:47 promethazine [From Phenergan] Allergy Hallucinati Verified 07/23/17 15:47 ng propoxyphene [From Darvon] Allergy See Verified 02/19/18 12:29 Comments sulfamethoxazole Allergy Rash Verified 07/23/17 15:47 [From Bactrim] trimethoprim [From Bactrim] Allergy Rash Verified 07/23/17 15:47 aspirin AdvReac Abdominal Verified 07/23/17 15:47 Pain Review of Systems: Constitutional: [Negative for fever and chills.] HENT: [Negative for congestion.] Eyes: [Negative for discharge.] Respiratory: [Negative for shortness of breath.] Cardiovascular: [Negative for chest pain.] Gastrointestinal: See history of present illness Endocrine: [Negative for excessive thirst,urination] Genitourinary: [Negative for dysuria and frequency.] Musculoskeletal: [Negative for myalgias and arthralgias.] Skin: [Negative for rash.] Neurological: [Negative for dizziness, localized weakness and headaches.] Psychiatric/Behavioral: [Negative for nervous/anxious.] All other systems reviewed and are negative. Abdominal Pain PMH - Past Medical History Medical history: Reports: atrial fibrillation, CHF, COPD, dementia, hypertension, seizures Female Surgical History: Reports: appendectomy, cholecystectomy, hysterectomy [employer] history: Reports: no [employer] history Psychiatric history: Reports: anxiety, depression - Social History Smoking status: Former smoker Alcohol use: Reports: none Drug use: Reports: none Physical Exam Constitutional: Patient is [alert], elderly and thin and cooperative. HENT: Head: Normocephalic and atraumatic. Right Ear: External ear normal. Left Ear: External ear normal. Nose: Nose normal. Mouth/Throat: Oropharynx is clear and mucous membranes show [good hydration.] Eyes: Conjunctivae and EOM are normal. Pupils are equal, round, and reactive to light. Right eye exhibits [no] discharge. Left eye exhibits [no] discharge. Neck: Trachea is midline, normal range of motion and [phonation normal]. Neck supple. Cardiovascular: [Regular rhythm], S1 normal, S2 normal, normal heart sounds and intact distal pulses. Exam reveals no gallop and no friction rub. No murmur heard. [Capillary refill is brisk.] [Peripheral pulses are 2+] Pulmonary/Chest: Effort [normal] No stridor. [No] tachypnea. [No] respiratory distress. There are [no] decreased breath sounds. [There no wheezes, no rhonchi, or rales.] Abdominal: Soft. Bowel sounds are hypoactive. There exhibits [no] distension and [no] mass. There is no hepatosplenomegaly. There is left lower quadrant tenderness, [no] CVA tenderness. There is [no rigidity, no rebound, no guarding]. Musculoskeletal: Normal range of motion of uninvolved extremities. There exhibits [no edema]. [ ] Neurological: Patient is alert. Patient displays no atrophy and no tremor. Moves all 4 extremities equally without gross deficit. No cranial nerve deficit and exhibits normal muscle tone. Coordination normal grossly. Skin: Skin is warm and dry. No erythema. No rash noted. Psychiatric: Patient has a [normal mood and affect.] Course Course Narrative: Patient was discussed with Dr. Edwards who takes care of her at the custodial. We have discussed the nature to the hospital overnight for rate control related to her rate control of atrial fibrillation. Dr. Brennan was notified who agrees with admission Vital Signs Temperature 98.2 F 06/13/18 12:18 Pulse Rate 117 06/13/18 12:18 Respiratory Rate 30 06/13/18 12:18 Blood Pressure 161/96 06/13/18 12:18 O2 Sat by Pulse Oximetry 95 06/13/18 12:18 Temperature 98.2 F 06/13/18 12:18 Pulse Rate 110 06/13/18 17:15 Respiratory Rate 30 06/13/18 12:18 Blood Pressure 154/108 06/13/18 17:15 O2 Sat by Pulse Oximetry 96 06/13/18 16:28 Oxygen Delivery Oxygen Delivery Nasal Cannula Abdominal Pain - [facility] Narrative Medical decision making narrative: Patient appears to have mild heart failure secondary to A. fib with rapid ventricular response. Patient is currently is on metoprolol tartrate appears to possibly being malabsorption due to her recurrent C. difficile diarrhea. - Lab Data Lab results reviewed: Yes I reviewed the patient's lab results. Result diagrams: 06/13/18 13:40 06/13/18 13:40 Lab Results 06/13/18 06/13/18 06/13/18 Range/Units 13:25 13:39 13:39 WBC (4.3-11.1) K/mcL RBC (3.82-4.97) M/mcL Hgb (11.5-15.4) g/dL Hct (35.3-44.9) % MCV (83.0-100.0) fL MCH (28.0-33.3) pg MCHC (31.6-35.5) g/dL RDW (11.5-14.5) % Plt Count (140-400) K/mcL MPV (9.4-12.4) fL Immature Gran % (0-4) % Seg Neutrophils % % Lymphocytes % % Monocytes % % Eosinophils % % Basophils % % Neutrophils # (1.6-8.9) K/mcL Lymphocytes # (0.6-4.6) K/mcL Monocytes # (0.0-1.3) K/mcL Eosinophils # (0.0-0.6) K/mcL Basophils # (0.0-0.2) K/mcL Anisocytosis (Not Present) ABG pH (7.32-7.45) pH Units ABG pCO2 (35-45) mmHg ABG pO2 (85-104) mmHg ABG HCO3 (21-27) mEq/L ABG Total CO2 (20-26) mEq/L ABG O2 Saturation (95-98) % ABG Base Excess (-2 to 3) mEq/L Sodium (136-145) mEq/L Potassium (3.5-5.1) mEq/L Chloride (98-107) mEq/L Carbon Dioxide (23-29) mEq/L BUN (8-23) mg/dL Creatinine (0.60-1.20) mg/dL Est GFR ( Amer) (> 60) Est GFR (Non-Af Amer) (> 60) BUN/Creatinine Ratio (6-26) Glucose (70-105) mg/dL Calculated Osmolality (280-300) Calcium (8.6-10.3) mg/dL Total Bilirubin (0.3-1.0) mg/dL AST (13-39) Units/L ALT (7-52) Units/L Alkaline Phosphatase (34-104) Units/L Troponin I < 0.03 (< 0.04) ng/mL B-Natriuretic Peptide 876 H (Less than 100) pg/mL Serum Total Protein (6.4-8.9) g/dL Albumin (3.5-5.7) g/dL Globulin (2.4-3.5) g/dL Albumin/Globulin Ratio (1.1-2.2) Lipase (11-82) Units/L Urine Color Yellow (Yellow) Urine Clarity Clear (Clear) Urine pH 6.0 (5.0-8.0) pH Units Ur Specific [place] 1.020 (1.010-1.025) Urine Protein Trace (Neg-Trace) mg/dL Urine Glucose (UA) Normal (Normal) mg/dL Urine Ketones 15 H (Negative) mg/dL Urine Blood Small H (Negative) Urine Nitrite Negative (Negative) Urine Bilirubin Negative (Negative) Urine Urobilinogen Normal (Normal) mg/dL Ur Leukocyte Esterase Small H (Negative) Urine Microscopic RBC 5-15 H (0-3) per hpf Urine Microscopic WBC 5-15 H (0-3) per hpf Ur Squamous Epith Cells Few (None-Few) per lpf Urine Bacteria Moderate H (None-Few) per hpf Urine Yeast Moderate H (None Seen) per hpf Ur Culture Indicated? YES A (NO) 06/13/18 06/13/18 06/13/18 Range/Units 13:40 13:40 15:35 WBC 8.2 (4.3-11.1) K/mcL RBC 3.21 L (3.82-4.97) M/mcL Hgb 10.3 L (11.5-15.4) g/dL Hct 32.3 L (35.3-44.9) % MCV 100.6 H (83.0-100.0) fL MCH 32.1 (28.0-33.3) pg MCHC 31.9 (31.6-35.5) g/dL RDW 13.0 (11.5-14.5) % Plt Count 311 (140-400) K/mcL MPV 9.9 (9.4-12.4) fL Immature Gran % 1.1 (0-4) % Seg Neutrophils % 69.7 % Lymphocytes % 18.2 % Monocytes % 8.1 % Eosinophils % 2.2 % Basophils % 0.7 % Neutrophils # 5.7 (1.6-8.9) K/mcL Lymphocytes # 1.5 (0.6-4.6) K/mcL Monocytes # 0.7 (0.0-1.3) K/mcL Eosinophils # 0.2 (0.0-0.6) K/mcL Basophils # 0.1 (0.0-0.2) K/mcL Anisocytosis 1+ A (Not Present) ABG pH 7.38 (7.32-7.45) pH Units ABG pCO2 57 H (35-45) mmHg ABG pO2 71 L (85-104) mmHg ABG HCO3 34 H (21-27) mEq/L ABG Total CO2 36 H (20-26) mEq/L ABG O2 Saturation 93 L (95-98) % ABG Base Excess 8 H (-2 to 3) mEq/L Sodium 142 (136-145) mEq/L Potassium 3.7 (3.5-5.1) mEq/L Chloride 101 (98-107) mEq/L Carbon Dioxide 33 H (23-29) mEq/L BUN 10 (8-23) mg/dL Creatinine 0.42 L (0.60-1.20) mg/dL Est GFR ( Amer) > 60 (> 60) Est GFR (Non-Af Amer) > 60 (> 60) BUN/Creatinine Ratio 24 (6-26) Glucose 128 H (70-105) mg/dL Calculated Osmolality 295 (280-300) Calcium 9.0 (8.6-10.3) mg/dL Total Bilirubin 0.4 (0.3-1.0) mg/dL AST 22 (13-39) Units/L ALT 12 (7-52) Units/L Alkaline Phosphatase 76 (34-104) Units/L Troponin I (< 0.04) ng/mL B-Natriuretic Peptide (Less than 100) pg/mL Serum Total Protein 6.8 (6.4-8.9) g/dL Albumin 3.1 L (3.5-5.7) g/dL Globulin 3.7 H (2.4-3.5) g/dL Albumin/Globulin Ratio 0.8 L (1.1-2.2) Lipase 13 (11-82) Units/L Urine Color (Yellow) Urine Clarity (Clear) Urine pH (5.0-8.0) pH Units Ur Specific [place] (1.010-1.025) Urine Protein (Neg-Trace) mg/dL Urine Glucose (UA) (Normal) mg/dL Urine Ketones (Negative) mg/dL Urine Blood (Negative) Urine Nitrite (Negative) Urine Bilirubin (Negative) Urine Urobilinogen (Normal) mg/dL Ur Leukocyte Esterase (Negative) Urine Microscopic RBC (0-3) per hpf Urine Microscopic WBC (0-3) per hpf Ur Squamous Epith Cells (None-Few) per lpf Urine Bacteria (None-Few) per hpf Urine Yeast (None Seen) per hpf Ur Culture Indicated? (NO) - Radiology Data Radiology results reviewed: Yes I reviewed the patient's radiology results. XR/XR chest 1V portable IMPRESSION: 1. Hazy multifocal opacity throughout both lungs, left greater than right, likely reflecting a combination of asymmetric edema and superimposed pneumonia. 2. Small bilateral pleural effusions - EKG Data EKG attestation: Yes I reviewed and interpreted this EKG. EKG shows normal: axis, intervals, QRS complexes, ST-T waves Rate: tachycardia Rhythm: A.Fib Interpretation: nonspecific ST-T wave changes
[2018-06-13] MEDS ORDERED: ISOVUE-370 100 ML INFUS..BTL IVP ONE ×2 (13:10→17:54)
[2018-06-13 13:31] LABS: Bilirubin,Urine Negative (Negative); Blood,Urine Small (Negative); Clarity,Urine Clear (Clear); Color,Urine Yellow (Yellow); Glucose,Urine (UA) Normal (Normal); Ketones,Urine 15 mg/dL (Negative); Leukocyte Esterase,Urine Small (Negative); Nitrite,Urine Negative (Negative); Protein,Urine Trace mg/dL (Neg-Trace); Urobilinogen,Urine Normal (Normal)
[2018-06-13 13:44] LABS: Basophils # 0.1 K/mcL (0.0-0.2); Basophils % 0.7 %; Eosinophils # 0.2 K/mcL (0.0-0.6); Eosinophils % 2.2 %; Hematocrit 32.3 % (35.3-44.9); Hemoglobin 10.3 g/dL (11.5-15.4); Immature Granulocytes % 1.1 % (0-4); Lymphocytes # 1.5 K/mcL (0.6-4.6); Lymphocytes % 18.2 %; Mean Corpuscular HGB Conc 31.9 g/dL (31.6-35.5); Mean Corpuscular Hemoglobin 32.1 pg (28.0-33.3); Mean Corpuscular Volume 100.6 fL (83.0-100.0); Mean Platelet Volume 9.9 fL (9.4-12.4); Monocytes # 0.7 K/mcL (0.0-1.3); Monocytes % 8.1 %; Neutrophils # 5.7 K/mcL (1.6-8.9); Platelet Count 311 K/mcL (140-400); Red Blood Count 3.21 M/mcL (3.82-4.97); Segmented Neutrophils % 69.7 %
[2018-06-13 13:48] LABS: Squamous Epithelial Cell,Urine Few per lpf (None-Few)
[2018-06-13 13:49] LABS: Bacteria,Urine Moderate per hpf (None-Few); Yeast,Urine Moderate per hpf (None Seen)
[2018-06-13 13:53] LABS: Anisocytosis 1+ (Not Present)
[2018-06-13 13:57] LABS: Alanine Aminotransferase 12 Units/L (7-52); Albumin 3.1 g/dL (3.5-5.7); Albumin/Globulin Ratio 0.8 (1.1-2.2); Alkaline Phosphatase 76 Units/L (34-104); Aspartate Amino Transferase 22 Units/L (13-39); BUN/Creatinine Ratio 24 (6-26); Bilirubin,Total 0.4 mg/dL (0.3-1.0); Blood Urea Nitrogen 10 mg/dL (8-23); Carbon Dioxide 33 mEq/L (23-29); Chloride 101 mEq/L (98-107); Globulin 3.7 g/dL (2.4-3.5); Glucose 128 mg/dL (70-105); Lipase 13 Units/L (11-82); Osmolality,Calculated 295 (280-300); Potassium 3.7 mEq/L (3.5-5.1); Sodium 142 mEq/L (136-145); Total Protein 6.8 g/dL (6.4-8.9); eGFR For Non-African Americans > 60 (> 60)
[2018-06-13 15:38] LABS: ABG Base Excess 8 mEq/L (-2 to 3); ABG HCO3 34 mEq/L (21-27); ABG Oxygen Saturation 93 % (95-98); ABG PCO2 57 mmHg (35-45); ABG PH 7.38 pH Units (7.32-7.45); ABG PO2 71 mmHg (85-104); ABG TCO2 36 mEq/L (20-26)
[2018-06-13] MEDS ORDERED: *HR* Digoxin 0.5 MG/2 ML AMPUL IVP ONE (16:14)
[2018-06-13] MEDS ORDERED: *HR* Metoprolol 5 MG/5 ML VIAL IVP ONE (16:54)
[2018-06-13] MEDS ORDERED: *HR* HYDROcodone/Acet 5/325 mg TABLET PO PRN (17:54)
[2018-06-13] MEDS ORDERED: VANCOMYCIN HCL 250 MG PO SCH (18:00)
[2018-06-13] MEDS: Ipratropium/Albuterol Neb 3 ML IH SCH (19:50)
[2018-06-13] MEDS ORDERED: Ondansetron 4 MG/2 ML VIAL IVP PRN (19:51)
[2018-06-13] MEDS: levETIRAcetam 250 MG TABLET PO SCH (20:45)
[2018-06-13] MEDS: Apixaban 5 MG TABLET PO SCH (20:45)
[2018-06-13] MEDS: Gabapentin 400 MG CAPSULE PO SCH (20:50)
[2018-06-13] MEDS: carBAMazepine 200 MG TABLET PO SCH (20:58)
[2018-06-13] MEDS: Acetaminophen 325 MG TABLET PO SCH (20:59)
[2018-06-13] MEDS ORDERED: Mirtazapine 15 MG TABLET PO SCH (21:00)
[2018-06-13] MEDS ORDERED: Melatonin 3 MG TABLET PO SCH (21:00)
[2018-06-13] MEDS: Vancomycin Oral Soln 125 MG/2.5 ML UDC PO SCH (22:50)
[2018-06-14] MEDS: Ipratropium/Albuterol Neb 3 ML IH SCH ×4 (00:42→11:44)
[2018-06-14] MEDS ORDERED: MOM Conc 10 ML UD.LIQ PO SCH (09:00)
[2018-06-14] MEDS ORDERED: Cyanocobalamin (B-12) 1,000 MCG TABLET PO SCH (09:00)
[2018-06-14] MEDS ORDERED: Loratadine 10 MG TABLET PO SCH (09:00)
[2018-06-14] MEDS: levETIRAcetam 250 MG TABLET PO SCH (10:11)
[2018-06-14] MEDS: Acetaminophen 325 MG TABLET PO SCH (10:11)
[2018-06-14] MEDS: Vancomycin Oral Soln 125 MG/2.5 ML UDC PO SCH ×2 (10:11→13:07)
[2018-06-14] MEDS: carBAMazepine 200 MG TABLET PO SCH (10:11)
[2018-06-14] MEDS: Gabapentin 400 MG CAPSULE PO SCH (10:11)
[2018-06-14] MEDS: Apixaban 5 MG TABLET PO SCH (10:12)
--- NOTE | 2018-06-14 13:12 | Internal Med History&Physical ---
Addendum entered and electronically signed by Jorge A Brennan MD 06/14/18 14:24: I have personally performed a face to face evaluation on this patient. I have r eviewed and agree with the care plan. History and Exam by me shows: The patient is a 73-year-old who is demented and fortunately not able to answer many questions. She is not sure as to why she is here. She was admitted to the emergency room for observation after a rapid atrial fibrillation response. She was supposed to have diarrhea from C. difficile and the emergency room physician felt like this was the reason for her not absorbing her medications. On further information from family, she was refusing to take her medications at this facility. She seemed to have mild congestive heart failure but symptoms are not found, at this time. Review of systems is not obtainable as she is currently unable to refer to any symptoms. Examination: (Except as mentioned above): General: In no apparent distress. Alert and oriented only to selfname and date of . She is disoriented to place and time or purpose.. Nondiaphoretic. Head: Atraumatic and normocephalic. Respiratory: No use of accessory muscles. Lungs are clear throughout. Normal airflow. Cardiovascular: Regular rate and rhythm without murmur appreciated. Abdomen: Bowel sounds are normal. No hepatosplenomegaly mass or tenderness appreciated. Patient is examined upright at bedside and this also limits exam. Extremities: No cyanosis clubbing or edema. Skin: Warm and non-diaphoretic with no new lesions noted. She has taken her medications here and her rate is controlled, being in the 100 range, at the highest, as the morning has gone by. She will be treated with vancomycin for 10 days and return to her extended care facility. Original Note: Date of Encounter: 06/14/18 Time of Encounter: 13:10 Assessment and Plan (1) C. difficile colitis Current visit: Yes Status: Acute No diarrhea reported today. Continue vancomycin. (2) Paroxysmal atrial fibrillation with rapid ventricular response Current visit: Yes Status: Acute Continue metoprolol. Monitor telemetry. (3) Dementia Current visit: Yes Status: Acute Assist with ADLs. Continue supportive care. Qualifiers: Dementia type: unspecified type Dementia behavioral disturbance: without behavioral disturbance Qualified Code(s): F03.90 - Unspecified dementia without behavioral disturbance Internal Medicine - H&P: HPI Admitted From: Emergency Dept Plans for Post Hospital Care: Transfer [facility] History of present illness: Ms. Spencer is a 73 year old female admitted for observation after arriving at the emergency room from [facility] yesterday with complaints of shortness of breath. Patient has had recent diagnosis of pneumonia and was hospitalized at [facility]. She then developed CDF. Was transferred back to [facility] and being treated with vancomycin for CBS. Patient continues to have diarrhea however none has been reported today. She does have history of a fib which is controlled with metoprolol. Patient heart rate has been going from 70s - 130s. Daughter at bedside and states that she frequently refuses her medications at the [facility]. Patient is confused and a poor historian with dementia diagnosis. Recent chest x-ray so small bilateral pleural effusions. History of CHF. Maintaining O2 sats greater than 90% on 2 L per nasal cannula. Urine culture is pending. Past Med Surg Social Fam HX - Past Medical History Medical history: atrial fibrillation, CHF, COPD, dementia, hypertension, seizures Additional medical history: hysto gallblader, tonsilectomy Psychiatric history: anxiety, depression - Past Surgical History Surgical History: cholecystectomy, hysterectomy - Social History Smoking Status: Former smoker Smokeless Tobacco Status: No Alcohol use: none Drug use: none Internal Medicine - H&P: Meds levETIRAcetam [Keppra] 750 mg PO BID 02/01/15 [History] Donepezil [Aricept] 10 mg PO HS 01/31/16 [History] Loratadine [Claritin] 10 mg PO DAILY 01/31/16 [History] Mirtazapine [Remeron] 15 mg PO HS 01/31/16 [History] Gabapentin [Neurontin] 400 mg PO BID 07/23/17 [History] carBAMazepine [Tegretol] 200 mg PO BID 07/23/17 [History] Acetaminophen [Tylenol] 650 mg PO TID 04/06/18 [History] Metoprolol [Lopressor] 50 mg PO BID 04/06/18 [History] Sertraline [Zoloft] 75 mg PO DAILY 04/06/18 [History] Apixaban [Eliquis] 5 mg PO BID 06/13/18 [History] Cyanocobalamin (Vitamin B-12) [Vitamin B-12] 500 mcg SL DAILY 06/13/18 [History] HYDROcodone/Acet 5/325 mg [[place] 5-325 mg] 1 tab PO Q6H PRN 06/13/18 [History] Ipratropium/Albuterol Neb [Duoneb] 3 ml IH Q4HR 06/13/18 [History] Magnesium Hydroxide [Milk of Magnesia] 30 ml PO DAILY 06/13/18 [History] Melatonin [Melatin] 3 mg PO HS 06/13/18 [History] Vancomycin HCl 250 mg PO Q6H 06/13/18 [History] Allergy/AdvReac Type Severity Reaction Status Date / Time azithromycin [From Zithromax] Allergy Rash Verified 07/23/17 15:47 cefuroxime [From Ceftin] Allergy Rash Verified 07/23/17 15:47 cephalexin [From Keflex] Allergy See Verified 07/23/17 15:47 Comments Erythromycin Base Allergy Rash Verified 07/23/17 15:47 levofloxacin [From Levaquin] Allergy Rash Verified 07/23/17 15:47 Penicillins Allergy Rash Verified 07/23/17 15:47 promethazine [From Phenergan] Allergy Hallucinati Verified 07/23/17 15:47 ng propoxyphene [From Darvon] Allergy See Verified 02/19/18 12:29 Comments sulfamethoxazole Allergy Rash Verified 07/23/17 15:47 [From Bactrim] trimethoprim [From Bactrim] Allergy Rash Verified 07/23/17 15:47 aspirin AdvReac Abdominal Verified 07/23/17 15:47 Pain All Systems PM: Difficult to obtain HPI due to dementia - Constitutional Vitals: Temp Pulse Resp BP Pulse Ox 97.0 F L 133 19 128/85 91 06/14/18 13:08 06/14/18 13:08 06/14/18 13:08 06/14/18 13:08 06/14/18 13:08 General appearance: Present: cooperative, A&O X 1 Exam: Confused confused - Head Head exam: Present: atraumatic, normocephalic - Eye Eye exam: Present: PERRL, conjuntiva pink, sclera anicteric Pupils: Present: PERRL - Neck Neck exam general surgery: Present: supple, trachea midline. Absent: lymphadenopathy - Respiratory Respiratory exam: Present: CTAB. Absent: accessory muscle use, rales, rhonchi, wheezes - Cardiovascular Cardiovascular exam: Present: irregular rhythm, +S1, +S2. Absent: diastolic murmur, gallop, rubs, systolic murmur - GI/Abdominal GI/Abdominal exam: Present: normal bowel sounds, soft, no peritoneal signs. Absent: distended, tenderness - Extremities Exam Extremities exam: Present: warm, radial pulses palpable and symmetrical. Ab sent: calf tenderness, cyanotic, pedal edema - Neurological Exam Neurological exam: Present: CN II-XII intact, oriented X3, no focal deficits. Absent: pronater drift, facial droop, speech deficit - Skin Skin exam: Present: dry, intact Internal Med - H&P Results - Labs CBC & Chem 7: 06/13/18 13:40 06/13/18 13:40 Labs: Short CBC 06/13/18 Range/Units 13:40 WBC 8.2 (4.3-11.1) K/mcL Hgb 10.3 L (11.5-15.4) g/dL Hct 32.3 L (35.3-44.9) % Plt Count 311 (140-400) K/mcL Neutrophils # 5.7 (1.6-8.9) K/mcL BMP 06/13/18 13:40 Sodium 142 Potassium 3.7 Chloride 101 Carbon Dioxide 33 H BUN 10 Creatinine 0.42 L Glucose 128 H Calcium 9.0 Cardiac Enzymes 06/13/18 Range/Units 13:39 Troponin I < 0.03 (< 0.04) ng/mL Liver Function 06/13/18 Range/Units 13:40 Total Bilirubin 0.4 (0.3-1.0) mg/dL AST 22 (13-39) Units/L ALT 12 (7-52) Units/L Alkaline Phosphatase 76 (34-104) Units/L Albumin 3.1 L (3.5-5.7) g/dL Urine 06/13/18 Range/Units 13:25 Urine Color Yellow (Yellow) Urine Clarity Clear (Clear) Urine pH 6.0 (5.0-8.0) pH Units Ur Specific [place] 1.020 (1.010-1.025) Urine Protein Trace (Neg-Trace) mg/dL Urine Glucose (UA) Normal (Normal) mg/dL - ABG Interpretation ABG results: 06/13/18 15:35 ABG pH 7.38 ABG pCO2 57 H ABG pO2 71 L ABG HCO3 34 H ABG Total CO2 36 H ABG O2 Saturation 93 L ABG Base Excess 8 H - Impressions ITS Impressions Chest X-Ray 06/13/18 14:29 IMPRESSION: 1. Hazy multifocal opacity throughout both lungs, left greater than right, likely reflecting a combination of asymmetric edema and superimposed pneumonia. 2. Small bilateral pleural effusions. D/ / 06/13/2018 14:58:59 Fredrick Mayer MD / [facility] Interpreting Provider: Fredrick Mayer MD
--- NOTE | 2018-06-14 14:11 | Physician Discharge Referral ---
Addendum entered and electronically signed by Jorge A Brennan MD 06/14/18 14:27: Original Note: ExtendedCare Referral Info Provider in Charge after Transfer: PCP - Diagnosis (1) C. difficile colitis Priority: Primary Status: Acute (2) Paroxysmal atrial fibrillation with rapid ventricular response Priority: Primary Status: Acute (3) Dementia Priority: Secondary Status: Chronic Prognosis: Fair Aware of Diagnosis: Family Aware of Prognosis: Family - Transfer Medications Home Medications: levETIRAcetam [Keppra] 750 mg PO BID 02/01/15 [History] Donepezil [Aricept] 10 mg PO HS 01/31/16 [History] Loratadine [Claritin] 10 mg PO DAILY 01/31/16 [History] Mirtazapine [Remeron] 15 mg PO HS 01/31/16 [History] Gabapentin [Neurontin] 400 mg PO BID 07/23/17 [History] carBAMazepine [Tegretol] 200 mg PO BID 07/23/17 [History] Acetaminophen [Tylenol] 650 mg PO TID 04/06/18 [History] Metoprolol [Lopressor] 50 mg PO BID 04/06/18 [History] Sertraline [Zoloft] 75 mg PO DAILY 04/06/18 [History] Apixaban [Eliquis] 5 mg PO BID 06/13/18 [History] Cyanocobalamin (Vitamin B-12) [Vitamin B-12] 500 mcg SL DAILY 06/13/18 [History] HYDROcodone/Acet 5/325 mg [[place] 5-325 mg] 1 tab PO Q6H PRN 06/13/18 [History] Ipratropium/Albuterol Neb [Duoneb] 3 ml IH Q4HR 06/13/18 [History] Magnesium Hydroxide [Milk of Magnesia] 30 ml PO DAILY 06/13/18 [History] Melatonin [Melatin] 3 mg PO HS 06/13/18 [History] Vancomycin HCl 250 mg PO Q6H 06/13/18 [History] Allergies/Adverse Reactions: Allergy/AdvReac Type Severity Reaction Status Date / Time azithromycin [From Zithromax] Allergy Rash Verified 07/23/17 15:47 cefuroxime [From Ceftin] Allergy Rash Verified 07/23/17 15:47 cephalexin [From Keflex] Allergy See Verified 07/23/17 15:47 Comments Erythromycin Base Allergy Rash Verified 07/23/17 15:47 levofloxacin [From Levaquin] Allergy Rash Verified 07/23/17 15:47 Penicillins Allergy Rash Verified 07/23/17 15:47 promethazine [From Phenergan] Allergy Hallucinati Verified 07/23/17 15:47 ng propoxyphene [From Darvon] Allergy See Verified 02/19/18 12:29 Comments sulfamethoxazole Allergy Rash Verified 07/23/17 15:47 [From Bactrim] trimethoprim [From Bactrim] Allergy Rash Verified 07/23/17 15:47 aspirin AdvReac Abdominal Verified 07/23/17 15:47 Pain - Respiratory Orders Oxygen / L per min Smoking Cessation: Smoking cessation has been advised. For more information, call the [employer] Tobacco Quit Line at 7-274-XRMK-NOW. - Advance Directives Code Status: Full Code CERTIFICATION: I certify that the transfer of the above named patient to an Extended Care Facility is necessary for the continuing treatment of the diagnosis listed. The above information is true and accurate reflection of patient's current condition. Confidential - Redisclosure prohibited without a patient's written consent.
--- NOTE | 2018-06-14 14:15 | Discharge Summary ---
Addendum entered and electronically signed by Jorge A Brennan MD 06/14/18 14:27: I have personally performed a face to face evaluation on this patient. I have r eviewed and agree with the care plan. History and Exam by me shows: Please see my H&P today. Original Note: - NOTES TO OUTPATIENT PROVIDER Notes to Outpatient Provider: Continue vancomycin for total of 10 days. Oxygen at 2 L per nasal cannula to maintain sats greater than 90%. Orders not resulted at time of discharge: Pending orders 06/13/18 13:25 Culture,Urine [RM] Stat Date of Encounter: 06/14/18 Time of Encounter: 14:11 - Discharge Diagnosis (1) C. difficile colitis Priority: Primary Status: Acute Comments: Continue vancomycin as ordered for 10 total days. Monitor. No diarrhea today. (2) Paroxysmal atrial fibrillation with rapid ventricular response Priority: Primary Status: Acute Comments: Rate controlled 80-100. Continue metoprolol. (3) Dementia Priority: Secondary Status: Chronic Comments: Progressive disease. Continue supportive care. 24 hour supervision in ECF. Increased risk for falls, dehydration, UTI, pneumonia, skin breakdown. Qualifiers: Dementia type: unspecified type Dementia behavioral disturbance: without behavioral disturbance Qualified Code(s): F03.90 - Unspecified dementia without behavioral disturbance Hospital course: Ms. Spencer is a 73 year old female discharging back to ECF after overnight admission. Will continue vancomycin for totalof 10 days for C diff. A fib rate controlled 80-100 after medications given. O2 per nasal cannula at 2 L to maintain sets greater than 90%. Does require 24 hour supervision due to dementia. Daughter at bedside. Denies questions or concerns at this time. Discharge discussed with: patient, family, nurse, social work - Time Spent with Patient Total time spent providing and/or coordinating discharge services: Less than 30 minutes - Discharge Medications Home Medications: levETIRAcetam [Keppra] 750 mg PO BID 02/01/15 [History] Donepezil [Aricept] 10 mg PO HS 01/31/16 [History] Loratadine [Claritin] 10 mg PO DAILY 01/31/16 [History] Mirtazapine [Remeron] 15 mg PO HS 01/31/16 [History] Gabapentin [Neurontin] 400 mg PO BID 07/23/17 [History] carBAMazepine [Tegretol] 200 mg PO BID 07/23/17 [History] Acetaminophen [Tylenol] 650 mg PO TID 04/06/18 [History] Metoprolol [Lopressor] 50 mg PO BID 04/06/18 [History] Sertraline [Zoloft] 75 mg PO DAILY 04/06/18 [History] Apixaban [Eliquis] 5 mg PO BID 06/13/18 [History] Cyanocobalamin (Vitamin B-12) [Vitamin B-12] 500 mcg SL DAILY 06/13/18 [History] HYDROcodone/Acet 5/325 mg [[place] 5-325 mg] 1 tab PO Q6H PRN 06/13/18 [History] Ipratropium/Albuterol Neb [Duoneb] 3 ml IH Q4HR 06/13/18 [History] Magnesium Hydroxide [Milk of Magnesia] 30 ml PO DAILY 06/13/18 [History] Melatonin [Melatin] 3 mg PO HS 06/13/18 [History] Vancomycin HCl 250 mg PO Q6H 06/13/18 [History] Ondansetron [Zofran] 8 mg IVP Q8HR PRN vial 06/14/18 [Rx] Allergies/Adverse Reactions: Allergy/AdvReac Type Severity Reaction Status Date / Time azithromycin [From Zithromax] Allergy Rash Verified 07/23/17 15:47 cefuroxime [From Ceftin] Allergy Rash Verified 07/23/17 15:47 cephalexin [From Keflex] Allergy See Verified 07/23/17 15:47 Comments Erythromycin Base Allergy Rash Verified 07/23/17 15:47 levofloxacin [From Levaquin] Allergy Rash Verified 07/23/17 15:47 Penicillins Allergy Rash Verified 07/23/17 15:47 promethazine [From Phenergan] Allergy Hallucinati Verified 07/23/17 15:47 ng propoxyphene [From Darvon] Allergy See Verified 02/19/18 12:29 Comments sulfamethoxazole Allergy Rash Verified 07/23/17 15:47 [From Bactrim] trimethoprim [From Bactrim] Allergy Rash Verified 07/23/17 15:47 aspirin AdvReac Abdominal Verified 07/23/17 15:47 Pain Date of admission: 06/13/18 18:09 Primary care physician: Rosanne Edwards Consults: 06/13/18 18:57 Consult to Autistic Teacher [CONS] Routine Reason for SW Consult: d/c planning Discharging clinician: Jorge A Brennan Anticipated date of discharge: 06/14/18 - Constitutional Vitals: see H&P dated this date. Temp Pulse Resp BP Pulse Ox 97.0 F L 133 19 128/85 91 06/14/18 13:08 06/14/18 13:08 06/14/18 13:08 06/14/18 13:08 06/14/18 13:08 General appearance: Present: cooperative, A&O X 1 - Patient Status Disposition: Transfer SNF Condition: Fair Functional capacity at discharge: uses cane/walker Overall status at discharge: patient is progressing back to baseline - Discharge Instructions Instructions: Atrial Fibrillation (DC) - Diet and Activity Activity: ambulate only with your walker, increase activity as tolerated Diet: advance to your usual diet
[2018-06-14 14:31] VITALS: BP 135/85
--- NOTE | 2018-06-17 12:10 | Electrocardiograph Report ---
[address] [place] [address] Test Date: 2018-06-13 Pat Name: Pat Spencer Department: [facility] Room: 112 Gender: F Assistant Speech Language Pathologist: : 1945 Requested By: Kenny Morton Order Number: [id number] Reading MD: Idalmis Chance Measurements Intervals [place] Rate: 121 P: CT: QRS: 97 QRSD: 69 T: 65 QT: 338 QTc: 480 Interpretive Statements Atrial fibrillation Borderline right axis deviation Possible anteroseptal infarct, old Electronically Signed On 06-17-2018 12:08:49 EST by Idalmis Chance
== END 2018-06-14 15:45 ==
LOC: EMEROOGRE 12:08 → INPGRE 12:08